=== PATIENT | male | born 1995 | race African-American/Black ===

== ENCOUNTER → 2020-07-04 | Outpatient (CLI) | payer MEDICAID | LOC: COL.RAD 07:00 | DX: R11.2 Nausea with vomiting, unspecified (principal) | CPT/HCPCS: A9541 ==

== ENCOUNTER → 2020-08-08 | Day surgery (SDC) | payer OTHER ==
[~2020-08-08] VITALS: Ht 165.1 cm; Wt 43.9 kg
[2020-08-08 09:08] VITALS: BP 110/66; PULSE 83; TEMP 98.8
[2020-08-08 10:10] VITALS: BP 110/68; PULSE 70; TEMP 98.2
--- NOTE | 2020-08-08 10:10 | NUR ---
PT TO [facility] VIA CART FROM [facility], PT WALKED TO CHAIR WITH ASSIST, DROWSY, BUT OPENS EYES WHEN SPOKEN TO. CALL LIGHT IN REACH, SIPS ON WATER
[2020-08-08 10:25] VITALS: BP 115/76; PULSE 71
--- NOTE | 2020-08-08 10:25 | NUR ---
DR VALE SPEAK WITH PT
[2020-08-08 10:40] VITALS: BP 113/74; PULSE 74
--- NOTE | 2020-08-08 10:50 | NUR ---
PT MORE AWAKE, REIVEWED DISCHARGE INST. WITH PT ON MODERATE SEDATION PRECAUTIONS TODAY AND DR OFFICE CALLING HIM ON RESULTS WITH VERBAL UNDERSTANDING, PT CALLED FOR [facility] AT THIS TIME. IV D'CD UP AND DRESSED, DISCHARGED VIA W/C TO [id number]
== END ==
LOC: SDCO 08:39
DX: K29.30 Chronic superficial gastritis without bleeding (principal); T47.1X6A Underdosing of other antacids and anti-gastric-secretion drugs, initial encounter; Z91.128 Patient's intentional underdosing of medication regimen for other reason
CPT/HCPCS: J2704; J7120